=== PATIENT | male | born 1960 | race African-American/Black ===

== ENCOUNTER 2019-08-07 03:57 | Emergency (ER) | payer OTHER ==
[~2019-08-07] VITALS: Ht 188 cm; Wt 97.5 kg
--- OUTSIDE RECORDS SUMMARY | 2019-08-07 04:03 | XMS REPORT ---
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 upper lobe and along the heart borders. Morphology and distribution favor subsegmental atelectasis. An underlying pneumonia or small mass lesion cannot be excluded. No definite evidence of pulmonary edema. The heart is enlarged but stable. Mediastinal contours are grossly unchanged allowing for the improved aeration of the right lung. A small right-sided pleural effusion and/ or pleural thickening is again noted. A tiny radiolucency is noted at the left lung apex. Artifact versus a small pneumothorax. Short-term follow-up imaging lenz rveillance recommended. Signed: Rod Velasquez MDReport Verified Date/Time: 05/13 19:49:47 Reading Location: [address] Reading Room [facility] signed by: ROD VELASQUEZ M.D. on 05/13/2018 07:49 PM BLOOD GAS, [id number] 19:39:00* Test Item Value Reference Range Comments PH ARTERIAL (BEAKER) (test alsn=899) 7.46 7.35-7.45 PCO2 ARTERIAL (BEAKER) (test wzmw=324) 37 mmHg 35-45 PO2 ARTERIAL (BEAKER) (test arur=998) 99 mmHg 80-90 O2 SATURATION ARTERIAL (BEAKER) (test kzrw=678) 97.9 % 96.0-97.0 HCO3 ARTERIAL (BEAKER) (test rakg=727) 26 mmol/L 21-29 BASE EXCESS ARTERIAL (BEAKER) (test kpxk=008) 1.6 mmol/L -2.0-3.0 PATIENT TEMPERATURE (BEAKER) (test bkja=4123) 36.8 C FIO2 (BEAKER) (test luqt=1051) 40.0 % HGB/HCT (H&H) - STAT [id number] 19:39:00* Test Item Value Reference Range Comments HEMOGLOBIN (BEAKER) (test gwrp=515) 8.9 g/dL 13.0-16.8 HEMATOCRIT (BEAKER) (test ebst=589) 26.0 % 40.0-50.0 CALCIUM, [id number] 19:39:00* Test Item Value Reference Range Comments CALCIUM IONIZED (BEAKER) (test rmaa=334) 1.07 mmol/L 1.12-1.27 PH, BLOOD (BEAKER) (test ohim=1559) 7.45 OXYGEN SATURATION, [id number] 19:39:00* Test Item Value Reference Range Comments O2 SATURATION (MEASURED) (BEAKER) (test ybwp=8192) 43.7 % CALCIUM, [id number] 17:46:00* Test Item Value Reference Range Comments CALCIUM IONIZED (BEAKER) (test zucq=849) 1.13 mmol/L 1.12-1.27 PH, BLOOD (BEAKER) (test mdtp=1999) 7.45 [id number] 17:44:00* Test Item Value Reference Range Comments SODIUM (BEAKER) (test sdpf=053) 140 meq/L 136-145 [id number] 17:43:00* Test Item Value Reference Range Comments MAGNESIUM (BEAKER) (test rujq=256) 2.3 mg/dL 1.6-2.6 Specimen slightly hemolyzed [id number] 17:43:00* Test Item Value Reference Range Comments PHOSPHORUS (BEAKER) (test dqix=700) 3.1 mg/dL 2.3-4.7 Specimen slightly hemolyzed [id number] 17:43:00* Test Item Value Reference Range Comments POTASSIUM (BEAKER) (test fllt=697) 4.2 meq/L 3.5-5.1 Specimen slightly hemolyzed [id number] 17:43:00* Test Item Value Reference Range Comments GLUCOSE RANDOM (BEAKER) (test omgz=669) 128 mg/dL 70-105 [id number] 17:40:00* Test Item Value Reference Range Comments PROTIME (BEAKER) (test uosn=802) 17.5 seconds 11.7-14.7 INR (BEAKER) (test rene=601) 1.4 <=5.9 PARTIAL THROMBOPLASTIN TIME (BEAKER) (test nkiu=121) 27.7 seconds 22.5-36.0 RECOMMENDED COUMADIN/WARFARIN INR THERAPY RANGESSTANDARD DOSE: 2.0 - 3.0 Inclu cirilo: PROPHYLAXIS for venous thrombosis, systemic embolization; TREATMENT for sonam ous thrombosis and/or pulmonary embolus.HIGH RISK: Target INR is 2.5-3.5 for pat ients with mechanical heart valves.LACTIC ACID, ARTERIAL, WHOLE [id number] 17:40:00* Test Item Value Reference Range Comments LACTATE BLOOD ARTERIAL (2) (BEAKER) (test bzhy=5664) 0.8 mmol/L 0.5-2.2 Specimen slightly hemolyzed CBC W/PLT COUNT & AUTO [id number] 17:32:00* Test Item Value Reference Range Comments WHITE BLOOD CELL COUNT (BEAKER) (test hera=717) 6.3 K/ L 3.5-10.5 RED BLOOD CELL COUNT (BEAKER) (test ogwp=370) 2.71 M/ L 4.63-6.08 HEMOGLOBIN (BEAKER) (test lxvx=658) 8.8 GM/DL 13.7-17.5 HEMATOCRIT (BEAKER) (test vexu=200) 26.8 % 40.1-51.0 MEAN CORPUSCULAR VOLUME (BEAKER) (test kbdw=385) 98.9 fL 79.0-92.2 MEAN CORPUSCULAR HEMOGLOBIN (BEAKER) (test zcvk=219) 32.5 pg 25.7-32.2 MEAN CORPUSCULAR HEMOGLOBIN CONC (BEAKER) (test zuxz=142) 32.8 GM/DL 32.3-36.5 RED CELL DISTRIBUTION WIDTH (BEAKER) (test fequ=364) 12.8 % 11.6-14.4 PLATELET COUNT (BEAKER) (test lihl=113) 139 K/CU MM 150-450 MEAN PLATELET VOLUME (BEAKER) (test dmtq=519) 9.8 fL 9.4-12.4 NUCLEATED RED BLOOD CELLS (BEAKER) (test givz=046) 0 /100 WBC 0-0 NEUTROPHILS RELATIVE PERCENT (BEAKER) (test lueu=305) 72 % LYMPHOCYTES RELATIVE PERCENT (BEAKER) (test ndjx=729) 19 % MONOCYTES RELATIVE PERCENT (BEAKER) (test dzhe=990) 6 % EOSINOPHILS RELATIVE PERCENT (BEAKER) (test bcou=957) 2 % BASOPHILS RELATIVE PERCENT (BEAKER) (test tixn=945) 0 % NEUTROPHILS ABSOLUTE COUNT (BEAKER) (test nfic=672) 4.57 K/ L 1.78-5.38 LYMPHOCYTES ABSOLUTE COUNT (BEAKER) (test tnly=796) 1.17 K/ L 1.32-3.57 MONOCYTES ABSOLUTE COUNT (BEAKER) (test hivb=870) 0.39 K/ L 0.30-0.82 EOSINOPHILS ABSOLUTE COUNT (BEAKER) (test lgyp=638) 0.12 K/ L 0.04-0.54 BASOPHILS ABSOLUTE COUNT (BEAKER) (test tbkm=409) 0.01 K/ L 0.01-0.08 IMMATURE GRANULOCYTES-RELATIVE PERCENT (BEAKER) (test lxxe=1592) 1 % 0-1 RAD, CHEST, 1 VIEW, NON [id number] 17:02:00Reason for exam:->s/p CABGShould this be performed at the bedside?->YesFINAL REPORT Chest one view. Clinical history: s/p CABG Comparison: May 08, 2018 Discussion: A frontal chest is provided. Cardiac silhouette is unchanged. There is widening of the right paratracheal stripe, which may reflect postsurgical change/hematoma versus adjacent lung opacity. ETT is 6 cm above the desirae. A feeding tube projects over the gastric cardia. There is a mediastinal drain, and a left chest tube. A right IJ line projects over the SVC. There is volume loss in the right lung, with suspected at least partial collapse of the right upper lobe. Left lung is clear. No pneumothorax, or significant effusion. Signed: Pricila [place]ges[place] Verified Date/Time: 05/13/2018 17:02:14 Reading Location: [facility] B1 C013W Consult Reading Room EN SATURATION, [id number] 16:51:00* Test Item Value Reference Range Comments O2 SATURATION (MEASURED) (BEAKER) (test rpdt=6566) 49.4 % BLOOD GAS, [id number] 16:51:00* Test Item Value Reference Range Comments PH ARTERIAL (BEAKER) (test lmcu=464) 7.45 7.35-7.45 PCO2 ARTERIAL (BEAKER) (test eknu=350) 40 mmHg 35-45 PO2 ARTERIAL (BEAKER) (test hvte=334) 62 mmHg 80-90 O2 SATURATION ARTERIAL (BEAKER) (test akaf=862) 92.9 % 96.0-97.0 HCO3 ARTERIAL (BEAKER) (test fadf=426) 27 mmol/L 21-29 BASE EXCESS ARTERIAL (BEAKER) (test oonh=953) 2.6 mmol/L -2.0-3.0 PATIENT TEMPERATURE (BEAKER) (test xcvk=8490) 36.8 C FIO2 (BEAKER) (test arol=7802) 60.0 % [id number] 16:40:00* Test Item Value Reference Range Comments ACTIVATED CLOTTING TIME (BEAKER) (test qnwf=087) 109 sec TESTED AT [place] [id number] 16:40:00* Test Item Value Reference Range Comments ACTIVATED CLOTTING TIME (BEAKER) (test mtnw=262) 428 sec TESTED AT [place] [id number] 16:40:00* Test Item Value Reference Range Comments ACTIVATED CLOTTING TIME (BEAKER) (test gyez=254) 477 sec TESTED AT [place] [id number] 16:40:00* Test Item Value Reference Range Comments ACTIVATED CLOTTING TIME (BEAKER) (test hfcs=060) 599 sec TESTED AT [place] [id number] THROMBOELASTOGRAPH (TEG)2018-05-13 15:45:00* Test Item Value Reference Range Comments TEG ACTIVATED CLOTTING TIME (BEAKER) (test oifp=8465) 3.5 minutes 4.0-7.0 TEG FIBRINOGEN ACTIVITY (BEAKER) (test dmkw=1767) 69.5 degrees 61.0-73.0 TEG PLT. AGGREGATION (BEAKER) (test iwme=2495) 55.9 MM 55.0-65.0 TGH ACTIVATED CLOTTING TIME (BEAKER) (test ieqg=6475) 3.2 minutes 4.0-7.0 TGH FIBRINOGEN ACTIVITY (BEAKER) (test kwrk=1035) 71.8 degrees 61.0-73.0 TGH PLT. AGGREGATION (BEAKER) (test ecme=8734) 58.6 MM 55.0-65.0 PROTHROMBIN TIME/[id number] 15:25:00* Test Item Value Reference Range Comments PROTIME (BEAKER) (test sxpz=062) 21.5 seconds 11.7-14.7 INR (BEAKER) (test tkeo=309) 1.9 <=5.9 RECOMMENDED COUMADIN/WARFARIN INR THERAPY RANGESSTANDARD DOSE: 2.0 - 3.0 Inclu cirilo: PROPHYLAXIS for venous thrombosis, systemic embolization; TREATMENT for sonam ous thrombosis and/or pulmonary embolus.HIGH RISK: Target INR is 2.5-3.5 for pat ients with mechanical heart valves.[id number] 15:25:00* Test Item Value Reference Range Comments PARTIAL THROMBOPLASTIN TIME (BEAKER) (test eqks=170) 24.4 seconds 22.5-36.0 [id number] 15:25:00* Test Item Value Reference Range Comments FIBRINOGEN LEVEL (BEAKER) (test xjxr=023) 279 mg/dl 225-434 PLATELET [id number] 15:15:00* Test Item Value Reference Range Comments PLATELET COUNT (BEAKER) (test juvb=615) 95 K/CU MM 150-450 BLOOD GAS, [id number] 15:09:00* Test Item Value Reference Range Comments PH ARTERIAL (BEAKER) (test wnes=495) 7.34 7.35-7.45 PCO2 ARTERIAL (BEAKER) (test orky=093) 49 mmHg 35-45 PO2 ARTERIAL (BEAKER) (test wzlq=270) 222 mmHg 80-90 O2 SATURATION ARTERIAL (BEAKER) (test ykpt=596) 99.4 % 96.0-97.0 HCO3 ARTERIAL (BEAKER) (test zetl=460) 26 mmol/L 21-29 BASE EXCESS ARTERIAL (BEAKER) (test ahzl=590) -0.3 mmol/L -2.0-3.0 PATIENT TEMPERATURE (BEAKER) (test pxzr=1604) 35.4 C FIO2 (BEAKER) (test hjmw=6189) 100.0 % SODIUM NA-STAT [id number] 15:09:00* Test Item Value Reference Range Comments SODIUM (BEAKER) (test ahxb=352) 132 meq/L 135-148 GLUCOSE-STAT [id number] 15:09:00* Test Item Value Reference Range Comments GLUCOSE RANDOM (BEAKER) (test xspl=165) 152 mg/dL 70-110 HGB/HCT (H&H) - STAT [id number] 15:09:00* Test Item Value Reference Range Comments HEMOGLOBIN (BEAKER) (test gjzt=006) 9.1 g/dL 13.0-16.8 HEMATOCRIT (BEAKER) (test zpvr=978) 27.0 % 40.0-50.0 CALCIUM, [id number] 15:08:00* Test Item Value Reference Range Comments CALCIUM IONIZED (BEAKER) (test reeb=258) 1.44 mmol/L 1.12-1.27 PH, BLOOD (BEAKER) (test juya=8929) 7.34 POTASSIUM-STAT [id number] 15:08:00* Test Item Value Reference Range Comments POTASSIUM (BEAKER) (test oucu=151) 4.7 meq/L 3.6-5.5 BLOOD GAS, [id number] 14:30:00* Test Item Value Reference Range Comments PH ARTERIAL (BEAKER) (test fqoq=095) 7.42 7.35-7.45 PCO2 ARTERIAL (BEAKER) (test cxpt=997) 39 mmHg 35-45 PO2 ARTERIAL (BEAKER) (test nkhj=293) 279 mmHg 80-90 O2 SATURATION ARTERIAL (BEAKER) (test msjo=041) 99.7 % 96.0-97.0 HCO3 ARTERIAL (BEAKER) (test moyq=090) 25 mmol/L 21-29 BASE EXCESS ARTERIAL (BEAKER) (test usfo=898) 0.2 mmol/L -2.0-3.0 PATIENT TEMPERATURE (BEAKER) (test ixef=4719) 34.9 C FIO2 (BEAKER) (test fivd=4033) 70.0 % GLUCOSE-STAT [id number] 14:30:00* Test Item Value Reference Range Comments GLUCOSE RANDOM (BEAKER) (test qytw=579) 170 mg/dL 70-110 SODIUM NA-STAT [id number] 14:30:00* Test Item Value Reference Range Comments SODIUM (BEAKER) (test jung=654) 132 meq/L 135-148 HGB/HCT (H&H) - STAT [id number] 14:30:00* Test Item Value Reference Range Comments HEMOGLOBIN (BEAKER) (test eaam=162) 7.3 g/dL 13.0-16.8 HEMATOCRIT (BEAKER) (test bigw=928) 21.0 % 40.0-50.0 POTASSIUM-STAT [id number] 14:30:00* Test Item Value Reference Range Comments POTASSIUM (BEAKER) (test mqst=333) 5.7 meq/L 3.6-5.5 BLOOD GAS, [id number] 14:01:00* Test Item Value Reference Range Comments PH ARTERIAL (BEAKER) (test txxx=080) 7.44 7.35-7.45 PCO2 ARTERIAL (BEAKER) (test pxpl=341) 39 mmHg 35-45 PO2 ARTERIAL (BEAKER) (test mdlu=740) 369 mmHg 80-90 O2 SATURATION ARTERIAL (BEAKER) (test zvtu=630) 99.8 % 96.0-97.0 HCO3 ARTERIAL (BEAKER) (test gtwh=959) 26 mmol/L 21-29 BASE EXCESS ARTERIAL (BEAKER) (test hnzx=023) 1.4 mmol/L -2.0-3.0 PATIENT TEMPERATURE (BEAKER) (test bejj=6329) 34.4 C FIO2 (BEAKER) (test ursy=2885) 70.0 % GLUCOSE-STAT [id number] 14:01:00* Test Item Value Reference Range Comments GLUCOSE RANDOM (BEAKER) (test atvb=711) 195 mg/dL 70-110 SODIUM NA-STAT [id number] 14:01:00* Test Item Value Reference Range Comments SODIUM (BEAKER) (test xkpm=541) 130 meq/L 135-148 POTASSIUM-STAT [id number] 14:01:00* Test Item Value Reference Range Comments POTASSIUM (BEAKER) (test vukr=834) 5.9 meq/L 3.6-5.5 HGB/HCT (H&H) - STAT [id number] 14:01:00* Test Item Value Reference Range Comments HEMOGLOBIN (BEAKER) (test wios=692) 8.1 g/dL 13.0-16.8 HEMATOCRIT (BEAKER) (test wnfk=459) 24.0 % 40.0-50.0 BLOOD GAS, [id number] 13:32:00* Test Item Value Reference Range Comments PH ARTERIAL (BEAKER) (test opkc=207) 7.41 7.35-7.45 PCO2 ARTERIAL (BEAKER) (test ggin=545) 38 mmHg 35-45 PO2 ARTERIAL (BEAKER) (test qwvw=190) 301 mmHg 80-90 O2 SATURATION ARTERIAL (BEAKER) (test fykt=920) 99.7 % 96.0-97.0 HCO3 ARTERIAL (BEAKER) (test fxlq=351) 25 mmol/L 21-29 BASE EXCESS ARTERIAL (BEAKER) (test uumf=732) -1.2 mmol/L -2.0-3.0 PATIENT TEMPERATURE (BEAKER) (test rgqw=9863) 28.6 C FIO2 (BEAKER) (test npel=7149) 60.0 % GLUCOSE-STAT [id number] 13:32:00* Test Item Value Reference Range Comments GLUCOSE RANDOM (BEAKER) (test iebh=242) 182 mg/dL 70-110 SODIUM NA-STAT [id number] 13:32:00* Test Item Value Reference Range Comments SODIUM (BEAKER) (test uvsz=650) 130 meq/L 135-148 HGB/HCT (H&H) - STAT [id number] 13:32:00* Test Item Value Reference Range Comments HEMOGLOBIN (BEAKER) (test flqp=265) 6.8 g/dL 13.0-16.8 HEMATOCRIT (BEAKER) (test npct=867) 20.0 % 40.0-50.0 POTASSIUM-STAT [id number] 13:31:00* Test Item Value Reference Range Comments POTASSIUM (BEAKER) (test ipfn=428) 5.3 meq/L 3.6-5.5 GLUCOSE-STAT [id number] 12:06:00* Test Item Value Reference Range Comments GLUCOSE RANDOM (BEAKER) (test tliq=595) 92 mg/dL 70-110 SODIUM NA-STAT [id number] 12:06:00* Test Item Value Reference Range Comments SODIUM (BEAKER) (test tufn=131) 136 meq/L 135-148 POTASSIUM-STAT [id number] 12:06:00* Test Item Value Reference Range Comments POTASSIUM (BEAKER) (test kwso=706) 4.1 meq/L 3.6-5.5 BLOOD GAS, [id number] 12:06:00* Test Item Value Reference Range Comments PH ARTERIAL (BEAKER) (test pcyv=318) 7.43 7.35-7.45 PCO2 ARTERIAL (BEAKER) (test ptvm=578) 40 mmHg 35-45 PO2 ARTERIAL (BEAKER) (test hktd=868) 397 mmHg 80-90 O2 SATURATION ARTERIAL (BEAKER) (test voan=193) 99.8 % 96.0-97.0 HCO3 ARTERIAL (BEAKER) (test dwip=119) 26 mmol/L 21-29 BASE EXCESS ARTERIAL (BEAKER) (test btbn=142) 1.4 mmol/L -2.0-3.0 PATIENT TEMPERATURE (BEAKER) (test xwap=3423) 36.0 C FIO2 (BEAKER) (test xypt=9011) 100.0 % HGB/HCT (H&H) - STAT [id number] 12:06:00* Test Item Value Reference Range Comments HEMOGLOBIN (BEAKER) (test xrrh=091) 12.9 g/dL 13.0-16.8 HEMATOCRIT (BEAKER) (test ofuo=548) 38.0 % 40.0-50.0 HEMOGLOBIN [id number] 15:13:00* Test Item Value Reference Range Comments HEMOGLOBIN A1C (BEAKER) (test wtzs=308) 6.1 % 4.3-6.1 [id number] 14:44:00* Test Item Value Reference Range Comments THYROID STIMULATING HORMONE (BEAKER) (test ecwo=479) 1.25 uIU/mL 0.35-4.94 [id number] 13:45:00* Test Item Value Reference Range Comments MAGNESIUM (BEAKER) (test dfpm=220) 2.3 mg/dL 1.6-2.6 COMPREHENSIVE METABOLIC [id number] 13:45:00* Test Item Value Reference Range Comments TOTAL PROTEIN (BEAKER) (test ctje=994) 8.5 gm/dL 6.0-8.3 ALBUMIN (BEAKER) (test dsbo=5490) 4.8 g/dL 3.5-5.0 ALKALINE PHOSPHATASE (BEAKER) (test xesx=322) 45 U/L 40-150 BILIRUBIN TOTAL (BEAKER) (test eusk=476) 0.4 mg/dL 0.2-1.2 SODIUM (BEAKER) (test gtit=579) 137 meq/L 136-145 POTASSIUM (BEAKER) (test zrfq=376) 4.2 meq/L 3.5-5.1 CHLORIDE (BEAKER) (test ultn=940) 102 meq/L 98-107 CO2 (BEAKER) (test vodd=662) 26 meq/L 22-29 BLOOD UREA NITROGEN (BEAKER) (test tuum=915) 23 mg/dL 7-21 CREATININE (BEAKER) (test gxyk=072) 0.94 mg/dL 0.57-1.25 GLUCOSE RANDOM (BEAKER) (test qtbz=427) 94 mg/dL 70-105 CALCIUM (BEAKER) (test awyb=407) 9.7 mg/dL 8.4-10.2 AST (SGOT) (BEAKER) (test ycfa=599) 57 U/L 5-34 ALT (SGPT) (BEAKER) (test hzhc=804) 75 U/L 6-55 EGFR (BEAKER) (test hiae=7726) 100 mL/min/1.73 sq m ESTIMATED GFR IS NOT ACCURATE CREATININE CLEARANCE IN PREDICTING GLOMERULAR FILTRATION RATE. ESTIMATED GFR IS NOT APPLICABLE FOR DIALYSIS PATIENTS. LIPID [id number] 13:45:00* Test Item Value Reference Range Comments TRIGLYCERIDES (BEAKER) (test hdqv=587) 63 mg/dL CHOLESTEROL (BEAKER) (test suaa=977) 100 mg/dL HDL CHOLESTEROL (BEAKER) (test cyhy=658) 26 mg/dL LDL CHOLESTEROL CALCULATED (BEAKER) (test djoh=874) 61 mg/dL Triglyceride Reference Range: Low Risk <150 Borderline 150-199 High Risk 200-499 Very High Risk >=500Cholesterol Reference Range: Low Risk <200 Borderline 200-239 High Risk >240HDL Cholesterol Reference Range: Low Risk >=60 High Risk <40LDL Cholesterol Reference Range: Optimal <100 Near Optimal 100-129 Borderline 130-159 High 160-189 Very High >=190 RAD, CHEST, 1 VIEW, NON [id number] 13:32:00Reason for exam:->Pre opShould this be performed at the bedside?->NoFINAL REPORT Chest, AP view. History: Preoperative. Comparison: None available. Discussion: The cardiomediastinal silhouette and pulmonary vasculature are within normal limits. The lungs are clear without evidence of consolidation or effusion. There are no acute osseous abnormalities. The soft tissues are unremarkable. IMPRESSION: No acute cardiopulmonary abnormality. Signed: Jovana Feliciano MDReport Verified Date/Time: 05/08/2018 13:32:43 Reading Location: [facility] Reading Room HROMBIN TIME/[id number] 13:26:00* Test Item Value Reference Range Comments PROTIME (BEAKER) (test mdig=622) 15.2 seconds 11.7-14.7 INR (BEAKER) (test osis=936) 1.2 <=5.9 RECOMMENDED COUMADIN/WARFARIN INR THERAPY RANGESSTANDARD DOSE: 2.0 - 3.0 Inclu cirilo: PROPHYLAXIS for venous thrombosis, systemic embolization; TREATMENT for sonam ous thrombosis and/or pulmonary embolus.HIGH RISK: Target INR is 2.5-3.5 for pat ients with mechanical heart valves.CBC W/PLT COUNT & AUTO [id number] 13:16:00* Test Item Value Reference Range Comments WHITE BLOOD CELL COUNT (BEAKER) (test qtnr=940) 6.0 K/ L 3.5-10.5 RED BLOOD CELL COUNT (BEAKER) (test ltyw=987) 4.45 M/ L 4.63-6.08 HEMOGLOBIN (BEAKER) (test fhss=100) 14.4 GM/DL 13.7-17.5 HEMATOCRIT (BEAKER) (test zgey=651) 44.0 % 40.1-51.0 MEAN CORPUSCULAR VOLUME (BEAKER) (test sdyr=148) 98.9 fL 79.0-92.2 MEAN CORPUSCULAR HEMOGLOBIN (BEAKER) (test jeav=370) 32.4 pg 25.7-32.2 MEAN CORPUSCULAR HEMOGLOBIN CONC (BEAKER) (test rxnr=992) 32.7 GM/DL 32.3-36.5 RED CELL DISTRIBUTION WIDTH (BEAKER) (test ista=837) 12.7 % 11.6-14.4 PLATELET COUNT (BEAKER) (test xkal=992) 185 K/CU MM 150-450 MEAN PLATELET VOLUME (BEAKER) (test kxlm=300) 10.0 fL 9.4-12.4 NUCLEATED RED BLOOD CELLS (BEAKER) (test jwbz=877) 0 /100 WBC 0-0 NEUTROPHILS RELATIVE PERCENT (BEAKER) (test nikm=634) 52 % LYMPHOCYTES RELATIVE PERCENT (BEAKER) (test gvpr=970) 33 % MONOCYTES RELATIVE PERCENT (BEAKER) (test oduy=704) 9 % EOSINOPHILS RELATIVE PERCENT (BEAKER) (test kbzi=077) 5 % BASOPHILS RELATIVE PERCENT (BEAKER) (test yysn=366) 1 % NEUTROPHILS ABSOLUTE COUNT (BEAKER) (test boex=661) 3.09 K/ L 1.78-5.38 LYMPHOCYTES ABSOLUTE COUNT (BEAKER) (test iwux=910) 2.00 K/ L 1.32-3.57 MONOCYTES ABSOLUTE COUNT (BEAKER) (test fbqj=076) 0.56 K/ L 0.30-0.82 EOSINOPHILS ABSOLUTE COUNT (BEAKER) (test pzpe=403) 0.30 K/ L 0.04-0.54 BASOPHILS ABSOLUTE COUNT (BEAKER) (test nato=419) 0.03 K/ L 0.01-0.08 IMMATURE GRANULOCYTES-RELATIVE PERCENT (BEAKER) (test qtan=3151) 0 % 0-1
[2019-08-07] MEDS ORDERED: KETOROLAC TROMETHAMINE 60 MG/2 ML VIAL IM ONE (05:15)
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
== END 2019-08-07 06:25 | disposition home or self-care (01) ==
LOC: ER 03:57
DX: M25.511 Pain in right shoulder (principal); W18.30XA Fall on same level, unspecified, initial encounter; Y92.488 Other paved roadways as the place of occurrence of the external cause
CPT/HCPCS: 73030; 93005; 99283; J1885